=== PATIENT | male | born 1995 | race Caucasian/White ===

== ENCOUNTER → 2017-05-29 | Outpatient (CLI) | payer OTHER ==
--- NOTE | 2017-05-29 17:06 | XR ---
EXAMINATION TYPE: XR Hip Complete RT DATE OF EXAM: 05/29/2017 COMPARISON: NONE HISTORY: Pain right hip contusion thigh TECHNIQUE: 2 view right hip FINDINGS: No acute fractures are evident. The femoral head articulates with the acetabulum. Joint spa ana preserved. IMPRESSION: 1. No acute osseous abnormality right hip.
== END | disposition home or self-care (01) ==
LOC: RADXRMAIN 15:39
PROVIDERS: ATTEND Family Medicine
DX: S70.11XA Contusion of right thigh, initial encounter (principal)
CPT/HCPCS: 73502

== ENCOUNTER 2018-06-11 18:19 | Observation (INO) | payer OTHER ==
[2018-06-11] MEDS ORDERED: SODIUM CHLORIDE 0.9% 1,000 ML IV ONE (19:12)
[2018-06-11] MEDS ORDERED: AMPICILLIN-SULBACTAM 3 GM in SODIUM CHLORIDE 0.9% 100 ML IVPB STA (19:12)
[2018-06-11] MEDS ORDERED: KETOROLAC 30 MG/ML 1 ML VIAL IVP STA (19:12)
[2018-06-11] MEDS ORDERED: DIPH,PERTUS(ACELL)TETVAC-LF 0.5 ML VIAL IM ONE (19:12)
--- NOTE | 2018-06-11 19:13 | ED ---
Animal Bite HPI - General Chief Complaint: Animal Bite Stated Complaint: Cat bite Time Seen by Provider: 06/11/18 19:01 Source: patient, RN notes reviewed, old records reviewed Mode of arrival: ambulatory Limitations: no limitations - History of Present Illness Initial Comments: Patient is a 23-year-old male who presents emergency department today for e valuation for Bite to his left elbow. Patient reports that he was bit by his likely neighbors domestic cat. There is a collar for CAt the time. They believe the cat's domesticated is up-to-date on vaccines. Declined rabies shots. Patient reports he's had increased redness, swelling over the elbow and forearm. Was seen by his PCP today and sent in for evaluation. He has not been on any antibiotics. His tetanus is not up-to-date. - Related Data Home Medications Medication Instructions Recorded Confirmed Ibuprofen [Advil] 600 mg PO Q8HR 06/11/18 06/11/18 Lacosamide [Vimpat] 200 mg PO BID 06/11/18 06/11/18 Melatonin 10 mg PO HS 06/11/18 06/11/18 Pramipexole Di-HCl [Mirapex] 0.25 mg PO HS 06/11/18 06/11/18 clonazePAM [KlonoPIN] 1 mg PO TID 06/11/18 06/11/18 Allergies Allergy/AdvReac Type Severity Reaction Status Date / Time codeine AdvReac Rash/Hives Verified 06/11/18 19:28 Review of Systems ROS Statement: Those systems with pertinent positive or pertinent negative responses have been documented in the HPI. ROS Other: All systems not noted in ROS Statement are negative. Past Medical History Past Medical History: Seizure Disorder Additional Past Medical History / Comment(s): Seizure History of Any Multi-Drug Resistant Organisms: MRSA Date of last positivie culture/infection: approx 6 yrs ago MDRO Source:: foot Past Surgical History: Orthopedic Surgery Past Psychological History: ADD/ADHD Smoking Status: Current every day smoker Past Alcohol Use History: None Reported Past Drug Use History: None Reported General Exam - General Exam Comments Initial Comments: 23-year-old male. Alert and oriented. No significant distress. Limitations: no limitations Head exam: Present: atraumatic, normocephalic, normal inspection Eye exam: Present: normal appearance, PERRL, EOMI. Absent: scleral icterus, conjunctival injection, periorbital swelling ENT exam: Present: normal exam, mucous membranes moist Neck exam: Present: normal inspection. Absent: tenderness, meningismus, lymphadenopathy Respiratory exam: Present: normal lung sounds bilaterally. Absent: respiratory distress, wheezes, rales, rhonchi, stridor Cardiovascular Exam: Present: regular rate, normal rhythm, normal heart sounds. Absent: systolic murmur, diastolic murmur, rubs, gallop, clicks GI/Abdominal exam: Present: soft, normal bowel sounds. Absent: distended, tenderness, guarding, rebound, rigid Extremities exam: Present: normal inspection, full ROM, normal capillary refill, other (Patient has left forearm redness around the elbow and upper arm. Patient reports pain with flexion and extension of the elbow.). Absent: tenderness, pedal edema, joint swelling, calf tenderness Back exam: Present: normal inspection Neurological exam: Present: alert, oriented X3, CN II-XII intact Psychiatric exam: Present: normal affect, normal mood Skin exam: Present: warm, dry, intact, normal color. Absent: rash Course Vital Signs 06/11/18 18:49 Temperature 99.3 F Pulse Rate 97 Respiratory 20 Rate Blood Pressure 141/88 O2 Sat by Pulse 98 Oximetry Medical Decision Making - Medical Decision Making 23-year-old male present today for evaluation of A 9 days ago over his left elbow. His symptoms certainly cellulitis pain with range of motion noted. Patient has normal pulses and sensation distally. Low suspicion for compartment syndrome. Patient was sent in by PCP for IV antibiotic. Patient reports the cat's domestic had a collar on. Discussed risk and benefit of rabies prophyl axis. Patient declines. He is given updated T Deppe started on Unasyn. Patient will be admitted with consult store so. Discussed patient's care with Dr. Rao who discussed case with Dr. Ruiz. - Lab Data Result diagrams: 06/11/18 19:40 Lab Results 06/11/18 06/11/18 Range/Units 19:40 19:40 WBC 10.1 (3.8-10.6) k/uL RBC 4.36 (4.30-5.90) m/uL Hgb 12.9 L (13.0-17.5) gm/dL Hct 38.4 L (39.0-53.0) % MCV 88.0 (80.0-100.0) fL MCH 29.5 (25.0-35.0) pg MCHC 33.6 (31.0-37.0) g/dL RDW 12.5 (11.5-15.5) % Plt Count 259 (150-450) k/uL Neutrophils % 70 % Lymphocytes % 21 % Monocytes % 5 % Eosinophils % 1 % Basophils % 1 % Neutrophils # 7.1 (1.3-7.7) k/uL Lymphocytes # 2.2 (1.0-4.8) k/uL Monocytes # 0.5 (0-1.0) k/uL Eosinophils # 0.1 (0-0.7) k/uL Basophils # 0.1 (0-0.2) k/uL PT 10.2 (9.0-12.0) sec INR 0.9 (<1.2) APTT 28.8 (22.0-30.0) sec - Radiology Data Radiology results: report reviewed Elbow x-ray shows soft tissue swelling but no fractures noted. Disposition Clinical Impression: Cat bite, Left arm cellulitis Disposition: ADMITTED IP TO THIS [facility] Condition: Stable Instructions (If sedation given, give patient instructions): Animal Bite (ED) Is patient prescribed a controlled substance at d/c from ED?: No Referrals: Epi Dunham Jr, [Primary Care Provider] - 1-2 days Time of Disposition: 20:05
--- NOTE | 2018-06-11 19:47 | XR ---
EXAMINATION TYPE: XR elbow complete LT DATE OF EXAM: 06/11/2018 COMPARISON: NONE HISTORY: Redness and swelling TECHNIQUE: 3 views FINDINGS: I see no fracture nor dislocation. Elbow joint spaces are normal. There is no sign of elbow joint effusion. There is apparent soft tissue swelling around the upper forearm. IMPRESSION: Soft tissue swelling. No fracture seen.
[2018-06-11 19:55] LABS: Basophils # (A) 0.1 k/uL (0-0.2); Basophils % (A) 1 %; Eosinophils # (A) 0.1 k/uL (0-0.7); Eosinophils % (A) 1 %; HCT 38.4 % (39.0-53.0); HGB 12.9 gm/dL (13.0-17.5); Lymphocytes # (A) 2.2 k/uL (1.0-4.8); Lymphocytes % (A) 21 %; MCH 29.5 pg (25.0-35.0); MCHC 33.6 g/dL (31.0-37.0); Mean Platelet Volume 7.1; Monocytes # (A) 0.5 k/uL (0-1.0); Monocytes % (A) 5 %; Neutrophils # (A) 7.1 k/uL (1.3-7.7); Neutrophils % (A) 70 %; Platelet Count 259 k/uL (150-450); RBC 4.36 m/uL (4.30-5.90); RDW 12.5 % (11.5-15.5); WBC 10.1 k/uL (3.8-10.6)
[2018-06-11 20:00] LABS: INR 0.9 (<1.2); Partial Thromboplastin Time 28.8 sec (22.0-30.0); Prothrombin Time 10.2 sec (9.0-12.0)
[2018-06-11 20:03] LABS: ALT 50 U/L (21-72); AST 51 U/L (17-59); Albumin 4.5 g/dL (3.5-5.0); Alkaline Phosphatase 42 U/L (38-126); Anion Gap 9 mmol/L; Blood Urea Nitrogen 13 mg/dL (9-20); C Reactive Protein 60.8 mg/L (<10.0); Calcium 9.6 mg/dL (8.4-10.2); Carbon Dioxide 24 mmol/L (22-30); Chloride 107 mmol/L (98-107); Glucose 104 mg/dL (74-99); Potassium 3.9 mmol/L (3.5-5.1); Sodium 140 mmol/L (137-145); Total Bilirubin 0.6 mg/dL (0.2-1.3); Total Protein 7.5 g/dL (6.3-8.2)
[2018-06-11] MEDS ORDERED: ONDANSETRON 4 MG/2 ML VIAL IVP PRN (20:06)
[2018-06-11] MEDS ORDERED: ACETAMINOPHEN TAB 325 MG TAB PO PRN (20:06)
[2018-06-11] MEDS ORDERED: IBUPROFEN 400 MG TAB PO PRN (20:06)
[2018-06-11] MEDS ORDERED: KETOROLAC 30 MG/ML 1 ML VIAL IVP PRN (20:06)
[2018-06-11] MEDS ORDERED: NALOXONE 0.4 MG/ML 1 ML VIAL IV PRN (20:06)
[2018-06-11 22:41] VITALS: BMI 17.8
[2018-06-11] MEDS: SODIUM CHLORIDE 0.9% 1,000 ML IV SCH (23:01)
[2018-06-11] MEDS: clonazePAM 1 MG TAB PO SCH (23:51)
[2018-06-11] MEDS: PRAMIPEXOLE 0.25 MG TAB PO SCH (23:52)
[2018-06-11] MEDS: NICOTINE 21MG/24HR PATCH TRANSDERM SCH (23:52)
[2018-06-11] MEDS: LACOSAMIDE 50 MG TABLET PO SCH (23:52)
[2018-06-12] MEDS: MELATONIN 5 MG TABLET PO SCH ×2 (03:03→23:23)
--- NOTE | 2018-06-12 07:06 | P.CNOR ---
History of Present Illness - [facility] Consult date: 06/12/18 Consult reason: other (left elbow cellulitis) History of present illness: Mr. De Souza is a pleasant 23-year-old [id number] male who was admitted through the emergency department with a diagnosis of left elbow cellulitis. He sustained a cat bite to his left elbow 10 days ago. He did not seek treatment initially and has not been on antibiotics prior to admission. The pain and redness continued to worsen and he decided to have it evaluated. He states that, prior to admission, the redness extended nearly to his axilla and down towards his wrist. He says it is significantly improved since starting the antibiotics yesterday. He denies history of chronic infections or recent illness. He denies history of diabetes. PMH is positive for epilepsy but he has not had a seizure in 6 or 7 months. He smokes a half pack a day. He admits to marijuana use but denies IV or other illicit drug use. He is not currently employed. Past Medical History Past Medical History: Seizure Disorder Additional Past Medical History / Comment(s): Seizure History of Any Multi-Drug Resistant Organisms: MRSA Year Discovered:: approx 6 yrs ago MDRO Source:: left foot Past Surgical History: Orthopedic Surgery Past Anesthesia/Blood Transfusion Reactions: No Reported Reaction Past Psychological History: ADD/ADHD, Panic Disorder Smoking Status: Current every day smoker Past Alcohol Use History: None Reported Past Drug Use History: None Reported - Past Family History Father Family Medical History: Seizure Disorder Medications and Allergies Home Medications Medication Instructions Recorded Confirmed Type Ibuprofen [Advil] 600 mg PO Q8HR 06/11/18 06/11/18 History Lacosamide [Vimpat] 200 mg PO BID 06/11/18 06/11/18 History Melatonin 10 mg PO HS 06/11/18 06/11/18 History Pramipexole Di-HCl [Mirapex] 0.25 mg PO HS 06/11/18 06/11/18 History clonazePAM [KlonoPIN] 1 mg PO TID 06/11/18 06/11/18 History Allergies Allergy/AdvReac Type Severity Reaction Status Date / Time codeine AdvReac Rash/Hives Verified 06/11/18 19:28 Physical Examination There is a small puncture wound on the lateral aspect of the elbow, anterior to the lateral epicondyle and overlying the mobile wad. There is trace erythema immediately adjacent to the wound but no streaking proximally or distally. No drainage. There is mild induration and subcutaneous edema but no appreciable fluctuance or focal fluid collection. There is no subcutaneous crepitus. He is fairly guarded on exam and is focally tender to palpation in this area. He is able to actively range the elbow from 20-100 with minimal discomfort in the midrange. He has pain with active wrist motion, particularly at the extreme of flexion or with resisted wrist extension. Results Left elbow x-rays were reviewed from an orthopedic standpoint. These demonstrate no appreciable fractures, subluxations or dislocations. No subcutaneous air or retained foreign bodies. No osseous lucencies or erosions to suggest osteomyelitis. - Labs Labs: Abnormal Lab Results - Last 24 Hours (Table) 06/11/18 06/11/18 Range/Units 19:40 19:40 Hgb 12.9 L (13.0-17.5) gm/dL Hct 38.4 L (39.0-53.0) % Glucose 104 H (74-99) mg/dL C-Reactive Protein 60.8 H (<10.0) mg/L H & H 06/11/18 Range/Units 19:40 Hgb 12.9 L (13.0-17.5) gm/dL Hct 38.4 L (39.0-53.0) % Coagulation 06/11/18 Range/Units 19:40 INR 0.9 (<1.2) Result Diagrams: 06/11/18 19:40 06/11/18 19:40 Assessment and Plan Assessment: 1. Left elbow cellulitis status post cat-bite 2. Nicotine addiction Plan: I reviewed the clinical findings with the patient and his girlfriend in detail. His exam is consistent with a superficial cellulitis. I do not see evidence of a discrete abscess requiring surgical debridement. I recommended continuing IV antibiotics. We will consult the infectious disease team for further evaluation and treatment recommendations. I suggested starting some warm compresses to increase local circulation. He may use the hand and arm as tolerated. I encouraged him to perform frequent range of motion of his hand, wrist and elbow. We discussed the negative effects of cigarette smoking, particularly as it relates to infection risk and wound healing complications. I recommended that he quit. He expressed understanding and was in agreement with the initial treatment plan. We will continue to monitor his clinical progress. Yasir Martin D.O. [facility]
[2018-06-12] MEDS: LACOSAMIDE 50 MG TABLET PO SCH ×2 (08:21→21:12)
[2018-06-12] MEDS: clonazePAM 1 MG TAB PO SCH ×3 (08:22→21:12)
[2018-06-12] MEDS: PANTOPRAZOLE 40 MG/10 ML VIAL IV SCH (08:22)
[2018-06-12] MEDS: NICOTINE 21MG/24HR PATCH TRANSDERM SCH (08:27)
[2018-06-12] MEDS: Acetaminophen-Codeine 300-30mg TAB PO PRN ×4 (08:27→21:13)
[2018-06-12] MEDS: SODIUM CHLORIDE 0.9% 1,000 ML IV SCH ×2 (08:28→15:35)
--- NOTE | 2018-06-12 09:50 | P.CONS ---
History of Present Illness - Reason for Consult Consult date: 06/12/18 Left elbow cellulitis 10 days status post Bite - History of Present Illness This is a 23-year-old male gives history that he was bitten on the left elbow by a cat outdoors approximate 10 days ago. He has not been on any antibiotic treatment. He states the cat was probably neighbors because it had a collar on it but was not familiar to him. He has had increased redness and swelling to the elbow that extended up into the axillary area and towards his wrist. He is complaining of pain mostly in the upper lobe but also into the forearm. He denies having any fever or chills. He denies any change in his appetite but he usually has poor appetite. Patient came into [facility] emergency center for evaluation. He has been afebrile with a white count of 10.1, creatinine 0.66, CRP 60.8, albumin 4.5. X-ray of the left elbow showed soft tissue swelling with no fracture. Patient was given a Tdap, 1 L of IV fluids, one dose of Unasyn and admitted to the [facility] floor. Patient has been seen by orthopedics with no plan for surgical intervention. Patient states that he has had some decreased edema to the left elbow. He still continues to have pain to the elbow area. 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 Review of Systems All systems: negative Constitutional: Reports poor appetite, Denies anorexia, Denies chills, Denies fatigue, Denies fever, Denies lethargy, Denies malaise, Denies weakness Eyes: denies blurred vision, denies pain Ears, nose, mouth and throat: Denies dysphagia, Denies headache, Denies nasal congestion, Denies nasal discharge, Denies sore throat, Denies vertigo Cardiovascular: Denies chest pain, Denies decreased exercise tolerance, Denies dyspnea on exertion, Denies edema, Denies leg edema, Denies lightheadedness, Denies shortness of breath, Denies syncope Respiratory: Reports cough, Denies cough with sputum, Denies dyspnea, Denies excessive sputum, Denies hemoptysis, Denies home oxygen Gastrointestinal: Denies abdominal pain, Denies diarrhea, Denies loss of appetite, Denies melena, Denies nausea, Denies vomiting Genitourinary: Denies dysuria, Denies urinary retention Musculoskeletal: Denies frequent falls, Denies gait dysfunction, Denies muscle weakness, Denies myalgias Musculoskeletal: left: elbow pain, elbow stiffness, elbow swelling Integumentary: Reports wounds, Denies pruritus, Denies rash Neurological: Denies aphasia, Denies change in mentation, Denies change in speech, Denies gait dysfunction, Denies head injury, Denies headaches, Denies numbness, Denies seizures, Denies weakness Psychiatric: Denies anxiety, Denies depression Endocrine: Denies fatigue, Denies weight change Past Medical History Past Medical History: Seizure Disorder Additional Past Medical History / Comment(s): Seizure History of Any Multi-Drug Resistant Organisms: MRSA Year Discovered:: approx 6 yrs ago MDRO Source:: left foot Past Surgical History: Orthopedic Surgery Past Anesthesia/Blood Transfusion Reactions: No Reported Reaction Past Psychological History: ADD/ADHD, Panic Disorder Smoking Status: Current every day smoker Past Alcohol Use History: None Reported Additional Past Alcohol Use History / Comment(s): Patient is a smoker of half a pack per day for 6 years. He also uses marijuana. He denies any other illicit drug use. Patient does not work and he does not go to school. He lives with his fianc. Past Drug Use History: None Reported - Past Family History Father Family Medical History: Seizure Disorder Medications and Allergies Home Medications Medication Instructions Recorded Confirmed Type Ibuprofen [Advil] 600 mg PO Q8HR 06/11/18 06/11/18 History Lacosamide [Vimpat] 200 mg PO BID 06/11/18 06/11/18 History Melatonin 10 mg PO HS 06/11/18 06/11/18 History Pramipexole Di-HCl [Mirapex] 0.25 mg PO HS 06/11/18 06/11/18 History clonazePAM [KlonoPIN] 1 mg PO TID 06/11/18 06/11/18 History Allergies Allergy/AdvReac Type Severity Reaction Status Date / Time codeine AdvReac Rash/Hives Verified 06/11/18 19:28 Physical Exam Vitals: Vital Signs Temp Pulse Pulse Resp BP BP Pulse Ox 06/12/18 07:27 97.5 F L 62 110/70 98 06/12/18 01:02 97.5 F L 69 14 98/56 96 06/11/18 22:20 98.0 F 77 15 126/73 98 06/11/18 21:06 98.4 F 86 18 116/85 98 06/11/18 18:49 99.3 F 97 20 141/88 98 Intake and Output 06/11/18 06/12/18 06/12/18 22:59 06:59 14:59 Other: Weight 61.235 kg Gen: This is a thin 23-year-old male. He is resting on the edge of the bed and appears comfortable and in no acute distress. HEENT: Head is atraumatic, normocephalic. Pupils equal, round. Sclerae is anicteric. Conjunctiva pink. Mucous members of the mouth are moist. No thrush noted. Dentition is in good order. NECK: Supple. No JVD. No lymphadenopathy. No thyromegaly. LUNGS: Clear to auscultation. A few scattered expiratory wheezes. No rhonchi. No intercostal retractions. HEART: Regular rate and rhythm. No murmur. ABDOMEN: Soft. Bowel sounds are present. No masses. No tenderness. EXTREMITIES: No pedal edema. No calf tenderness. There are small puncture sites noted to the left elbow with edema. Very minimal erythema. No axillary lymph node enlargement palpated. Elbow was very tender to touch. Capillary refill is immediate. Increased pain with range of motion NEUROLOGICAL: Patient is awake, alert and oriented x3. Cranial nerves 2 through 12 are grossly intact. Results Results: Laboratory Results WBC 10.1 k/uL (3.8-10.6) 06/11/18 19:40 RBC 4.36 m/uL (4.30-5.90) 06/11/18 19:40 Hgb 12.9 gm/dL (13.0-17.5) L 06/11/18 19:40 Hct 38.4 % (39.0-53.0) L 06/11/18 19:40 MCV 88.0 fL (80.0-100.0) 06/11/18 19:40 MCH 29.5 pg (25.0-35.0) 06/11/18 19:40 MCHC 33.6 g/dL (31.0-37.0) 06/11/18 19:40 RDW 12.5 % (11.5-15.5) 06/11/18 19:40 Plt Count 259 k/uL (150-450) 06/11/18 19:40 Neutrophils % 70 % 06/11/18 19:40 Lymphocytes % 21 % 06/11/18 19:40 Monocytes % 5 % 06/11/18 19:40 Eosinophils % 1 % 06/11/18 19:40 Basophils % 1 % 06/11/18 19:40 Neutrophils # 7.1 k/uL (1.3-7.7) 06/11/18 19:40 Lymphocytes # 2.2 k/uL (1.0-4.8) 06/11/18 19:40 Monocytes # 0.5 k/uL (0-1.0) 06/11/18 19:40 Eosinophils # 0.1 k/uL (0-0.7) 06/11/18 19:40 Basophils # 0.1 k/uL (0-0.2) 06/11/18 19:40 PT 10.2 sec (9.0-12.0) 06/11/18 19:40 INR 0.9 (<1.2) 06/11/18 19:40 APTT 28.8 sec (22.0-30.0) 06/11/18 19:40 Sodium 140 mmol/L (137-145) 06/11/18 19:40 Potassium 3.9 mmol/L (3.5-5.1) 06/11/18 19:40 Chloride 107 mmol/L (98-107) 06/11/18 19:40 Carbon Dioxide 24 mmol/L (22-30) 06/11/18 19:40 Anion Gap 9 mmol/L 06/11/18 19:40 BUN 13 mg/dL (9-20) 06/11/18 19:40 Creatinine 0.66 mg/dL (0.66-1.25) 06/11/18 19:40 Est GFR (CKD-EPI)AfAm >90 (>60 ml/min/1.73 sqM) 06/11/18 19:40 Est GFR (CKD-EPI)NonAf >90 (>60 ml/min/1.73 sqM) 06/11/18 19:40 Glucose 104 mg/dL (74-99) H 06/11/18 19:40 Calcium 9.6 mg/dL (8.4-10.2) 06/11/18 19:40 Total Bilirubin 0.6 mg/dL (0.2-1.3) 06/11/18 19:40 AST 51 U/L (17-59) 06/11/18 19:40 ALT 50 U/L (21-72) 06/11/18 19:40 Alkaline Phosphatase 42 U/L (38-126) 06/11/18 19:40 C-Reactive Protein 60.8 mg/L (<10.0) H 06/11/18 19:40 Total Protein 7.5 g/dL (6.3-8.2) 06/11/18 19:40 Albumin 4.5 g/dL (3.5-5.0) 06/11/18 19:40 CBC & Chem 7: 06/11/18 19:40 06/11/18 19:40 Labs: Abnormal Lab Results - Last 24 Hours (Table) 06/11/18 06/11/18 Range/Units 19:40 19:40 Hgb 12.9 L (13.0-17.5) gm/dL Hct 38.4 L (39.0-53.0) % Glucose 104 H (74-99) mg/dL C-Reactive Protein 60.8 H (<10.0) mg/L Assessment and Plan Plan: This is a 23-year-old male presented to the hospital after Bite approximately 10-11 days ago. Patient's tetanus status was updated in the emergency center. He received 1 dose of Unasyn which will be continued. He is followed by orthop edics with no plan for intervention. Patient has been instructed to keep his elbow elevated and avoid keeping it in a contracted position. Blood cultures status received. Further recommendations as patient progresses. The above dictated assessment and findings were discussed with Dr. Sharma. The impression and plan of care have been directed as dictated. Rowena Jain nurse practitioner acting as scribe for Dr. Sharma.
[2018-06-12] MEDS: AMPICILLIN-SULBACTAM 3 GM in SODIUM CHLORIDE 0.9% 100 ML IVPB SCH ×2 (10:24→15:35)
[2018-06-12] MEDS: INDOMETHACIN 25 MG CAP PO SCH ×3 (11:53→21:12)
--- NOTE | 2018-06-12 15:42 | P.HPIM ---
History of Present Illness H&P Date: 06/12/18 This is a 23-year-old gentleman, presented to the ER status post catbite of left elbow area in a patient with history of epilepsy-last seizure 6-7 months ago, ongoing nicotine ,THC abuse. Patient states he believes it to belong to one of his neighbors. Attempted to look at its collar and was bitten. Incident occurred on 06/02/2018. Reports initially it appeared to have 6 bites with multiple scratches.His arm became edematous, reddened from his wrist up to just under his axilla level with significant tenderness. Had been unable to move his wrist. Redness and edema improved but tenderness persisted. Evaluated by PCP who directed him to the ER. Receiving Unasyn IV, gentle IV fluid hydration and tetanus vaccination. This morning mild edema around the elbow area, no erythema. Able to move wrist, positive fine motor movements of fingers. Denies numbness, tingling or decreased sensation on the affected extremity. Reports significant improvement in both pain and flexibility of extremity since IV antibiotics initiated .Afebrile, normal WBC. Evaluated by orthopedic surgery,xrays reviewed- no fracture, no dislocation, no effusion, positive soft tissue swelling of the upper forearm with no I&D recommended at this time. Denies chest pain, palpitations or increasing shortness of breath. Denies lightheadedness dizziness or focal deficits. Review of Systems ROS Statement: Those systems with pertinent positive or pertinent negative responses have been documented in the HPI. ROS Other: All systems not noted in ROS Statement are negative. Past Medical History Past Medical History: Seizure Disorder Additional Past Medical History / Comment(s): Seizure History of Any Multi-Drug Resistant Organisms: MRSA Date of last positivie culture/infection: approx 6 yrs ago MDRO Source:: left foot Past Surgical History: Orthopedic Surgery Past Anesthesia/Blood Transfusion Reactions: No Reported Reaction Past Psychological History: ADD/ADHD, Panic Disorder Smoking Status: Current every day smoker Past Alcohol Use History: None Reported Additional Past Alcohol Use History / Comment(s): Patient is a smoker of half a pack per day for 6 years. He also uses marijuana. He denies any other illicit drug use. Patient does not work and he does not go to school. He lives with his fianc. Past Drug Use History: None Reported - Past Family History Father Family Medical History: Seizure Disorder Medications and Allergies Home Medications Medication Instructions Recorded Confirmed Type Ibuprofen [Advil] 600 mg PO Q8HR 06/11/18 06/11/18 History Lacosamide [Vimpat] 200 mg PO BID 06/11/18 06/11/18 History Melatonin 10 mg PO HS 06/11/18 06/11/18 History Pramipexole Di-HCl [Mirapex] 0.25 mg PO HS 06/11/18 06/11/18 History clonazePAM [KlonoPIN] 1 mg PO TID 06/11/18 06/11/18 History Allergies Allergy/AdvReac Type Severity Reaction Status Date / Time codeine AdvReac Rash/Hives Verified 06/11/18 19:28 Physical Exam Vitals: Vital Signs Temp Pulse Pulse Resp BP BP Pulse Ox 06/12/18 08:10 62 14 06/12/18 07:27 97.5 F L 62 110/70 98 06/12/18 01:02 97.5 F L 69 14 98/56 96 06/11/18 22:20 98.0 F 77 15 126/73 98 06/11/18 21:06 98.4 F 86 18 116/85 98 06/11/18 18:49 99.3 F 97 20 141/88 98 Intake and Output 06/11/18 06/12/18 06/12/18 22:59 06:59 14:59 Other: Weight 61.235 kg PHYSICAL EXAM: VITAL SIGNS: As above GENERAL: Sitting up at side of bed, no acute distress HEENT: Conjunctivae normal. eyes normal. Oral mucosa moist NECK: No JVD. No thyroid enlargement. No LNs CARDIOVASCULAR: S1, S2 regular. No murmur RESPIRATION: Breath sounds diminished in the bases. No rhonchi or crackles. Occasional fine expiratory wheeze ABDOMEN: Soft, nontender . No guarding. no masses palpable.Bowel sounds heard. LEGS: No edema. no swelling PSYCHIATRY: Alert and oriented -3, mood and affect normal. NERVOUS SYSTEM: Cranial N 2-12 grossly normal. Moves all 4 limbs. No focal deficits. No sensory deficit. Skin: Left elbow puncture site with mild edema, no erythema,tender. Positive radial pulse. Positive fine motor skills-increased pain with movement. Results CBC & Chem 7: 06/11/18 19:40 06/11/18 19:40 Labs: Abnormal Lab Results - Last 24 Hours (Table) 06/11/18 06/11/18 Range/Units 19:40 19:40 Hgb 12.9 L (13.0-17.5) gm/dL Hct 38.4 L (39.0-53.0) % Glucose 104 H (74-99) mg/dL C-Reactive Protein 60.8 H (<10.0) mg/L Thrombosis Risk Factor Assmnt - Choose All That Apply Any of the Below Risk Factors Present?: No Other Risk Factors: No Thrombosis Risk Factor Assessment Level: Very Low Risk Assessment and Plan Assessment: Cat bite from 06/02/18, soft tissue swelling per x-ray.declined rabies vaccination. Tetanus updated. -Nicotine dependence -THC use -Epilepsy hx Plan: Continue on current medication regime ,monitoring and symptomatic treatment. Evaluated by a orthopedics if no intervention recommended at this time. Maintained on IV antibiotics as per infectious disease. Blood cultures pending. Smoking cessation addressed. All meds have been reviewed and resumed. Further recommendations to follow. The impression and plan of care has been dictated as directed. : I performed a history and examination of this patient, discussed the same with the dictator. I agree with the dictator's note ,documented as a scribe. Any additional findings or plans will be noted.
--- NOTE | 2018-06-12 23:02 | P.CON ---
Consult Note - . Consult date: 06/12/18 Assessment/Plan:: This is a 23-year-old male gives history that he was bitten on the left elbow by a cat outdoors approximate 10 days ago. He has not been on any antibiotic treatment. He states the cat was probably neighbors because it had a collar on it but was not familiar to him. He has had increased redness and swelling to the elbow that extended up into the axillary area and towards his wrist. He is complaining of pain mostly in the upper lobe but also into the forearm. He denies having any fever or chills. He denies any change in his appetite but he usually has poor appetite. Patient came into [facility] emergency center for evaluation. He has been afebrile with a white count of 10.1, creatinine 0.66, CRP 60.8, albumin 4.5. X-ray of the left elbow showed soft tissue swelling with no fracture. Patient was given a Tdap, 1 L of IV fluids, one dose of Unasyn and admitted to the [facility] floor. Patient has been seen by orthopedics with no plan for surgical intervention. Patient states that he has had some decreased edema to the left elbow. He still continues to have pain to the elbow area. 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 Please see the consult note is dictated by nurse practitioner Mrs. Rowena Jain. 23-year-old male relates that the cat was on his porch and had a collar and appeared to be an indoor cat. He went to try to chicken picker the To determine if there was a number to be able to call its gamb cutter. As he reached for the cat became frightened and bit him along the medial aspect of the left arm at the biceps and brachial site. No tenderness later he developed significant swelling and erythema to the arm and presents to his primary care physician, Dr. Ruiz, he was directed for admission to hospital. With fluids and antibiotic therapy with Unasyn yesterday showing a marked improvement. His Tdap Has been updated. Patient is showing an excellent response to Unasyn is still having some discomfort in receiving pain medications for that. We'll ensure he continues received some Toradol for now. The offending animal apparently is a neighborhood cat but they do not know the gamb cutter. Cat rabies is very uncommon and patient does not desire prophylaxis. Expect rapid improvement of cellulitis in the next day or so, playful transition to oral Augmentin at discharge. I agree with the evaluation assessment and plan as dicatated by [employer] Mrs. Rowena Jain.
[2018-06-12] MEDS: PRAMIPEXOLE 0.25 MG TAB PO SCH (23:23)
--- NOTE | 2018-06-12 23:37 | P.PN ---
Subjective Progress Note Date: 06/12/18 The patient was seen and examined at the bedside. He reports substantial improvement in both his pain and range of motion. He has been trying to move both the wrist and elbow and feels they are doing better. Pain is well- controlled on oral medication. Objective - Vital Signs Vital signs: Vital Signs Temp 97.7 F 06/12/18 19:15 Pulse 58 L 06/12/18 19:15 Resp 14 06/12/18 19:15 BP 132/81 06/12/18 19:15 Pulse Ox 98 06/12/18 19:15 Intake & Output 06/12/18 06/12/18 06/13/18 06:59 18:59 06:59 Other: Voiding Method Toilet # Voids 3 - Exam The edema and induration around the puncture wound has substantially diminished. It is much less tender to palpation. He is able to actively range the elbow from 30-110 with only mild discomfort at the extremes. - Labs CBC & Chem 7: 06/11/18 19:40 06/11/18 19:40 Assessment and Plan Assessment: 1. Left elbow cellulitis status post cat-bite 2. Nicotine addiction Plan: The elbow shows excellent clinical improvement. I recommended continuing range of motion and activity as tolerated. Based on his progression today, I expect he will be able to discharge home tomorrow. I explained that he may have some mild discomfort in lingering symptoms for a couple weeks but these should gradually diminish. He does not need to schedule any formal follow-up appointment with orthopedics but was encouraged to contact our office if he experiences persisting pain or concerning symptoms.
[2018-06-13] MEDS: AMPICILLIN-SULBACTAM 3 GM in SODIUM CHLORIDE 0.9% 100 ML IVPB SCH ×3 (00:13→15:55)
[2018-06-13] MEDS: SODIUM CHLORIDE 0.9% 1,000 ML IV SCH ×2 (01:32→14:48)
[2018-06-13] MEDS: NICOTINE 21MG/24HR PATCH TRANSDERM SCH (08:58)
[2018-06-13] MEDS: LACOSAMIDE 50 MG TABLET PO SCH (08:58)
[2018-06-13] MEDS: PANTOPRAZOLE 40 MG/10 ML VIAL IV SCH (08:58)
[2018-06-13] MEDS: clonazePAM 1 MG TAB PO SCH ×2 (08:58→14:49)
[2018-06-13] MEDS: INDOMETHACIN 25 MG CAP PO SCH ×2 (08:59→14:50)
[2018-06-13 09:01] VITALS: BP 95/58; PULSE 65; RESP 16; TEMP 97.7
[2018-06-13] MEDS: Acetaminophen-Codeine 300-30mg TAB PO PRN ×2 (09:13→14:49)
--- NOTE | 2018-06-13 09:48 | P.PN ---
Subjective Progress Note Date: 06/13/18 Principal diagnosis: Cat Bite with subsequent cellulitis left elbow. Mr. De Souza is a pleasant 23-year-old [id number] male who was admitted through the emergency department with a diagnosis of left elbow cellulitis. He sustained a cat bite to his left elbow 10 days ago. He did not seek treatment initially and has not been on antibiotics prior to admission. The pain and redness continued to worsen and he decided to have it evaluated. He states that, prior to admission, the redness extended nearly to his axilla and down towards his wrist. He says it is significantly improved since starting the antibiotics yesterday. He denies history of chronic infections or recent illness. He denies history of diabetes. PMH is positive for epilepsy but he has not had a seizure in 6 or 7 months. He smokes a half pack a day. He admits to marijuana use but denies IV or other illicit drug use. He has been on IV antibiotics for 2 days and is improving significantly. His elbow motion is improving. He has no new complaints or concerns today. Vital signs are stable. Objective - Vital Signs Vital signs: Vital Signs Temp 97.7 F 06/13/18 07:00 Pulse 65 06/13/18 07:00 Resp 16 06/13/18 07:00 BP 95/58 06/13/18 07:00 Pulse Ox 100 06/13/18 07:00 Intake & Output 06/12/18 06/13/18 06/13/18 18:59 06:59 18:59 Intake Total 1200 Balance 1200 Intake: Intake, IV Titration 1200 Amount Ampicillin-Sulbactam 3 gm 100 In Sodium Chloride 0.9% 100 ml @ 200 mls/hr IVPB Q8HR SHANNAN Rx#:[id number] Sodium Chloride 0.9% 1, 1100 000 ml @ 100 mls/hr IV . Q10H SHANNAN Rx#:[id number] Other: Voiding Method Toilet # Voids 3 2 - Exam This is a pleasant 23-year-old male in no acute distress. He is alert and oriented 3. Exam the left elbow reveals no erythema and minimal swelling. His range of motion is improving. He has extension lacking about 20 of full exten nicole with flexion to 130. Full forearm rotation without difficulty or pain. Neurovascular status to the upper extremity is intact. - Labs CBC & Chem 7: 06/11/18 19:40 06/11/18 19:40 Labs: Microbiology - Last 24 Hours (Table) 06/12/18 02:56 Blood Culture - Preliminary Blood No Growth after 24 hours Assessment and Plan (1) Cat bite Current Visit: Yes Status: Acute Code(s): W55.01XA - BITTEN BY CAT, INITIAL ENCOUNTER SNOMED Code(s): 294306622 (2) Left arm cellulitis Current Visit: Yes Status: Acute Code(s): L03.114 - CELLULITIS OF LEFT UPPER LIMB SNOMED Code(s): 636567656 Plan: The clinical findings are discussed the patient. He may be discharged from an orthopedic standpoint. He may follow up with his primary care physician. Please call our office during problems or questions regarding his progress.
--- NOTE | 2018-06-13 11:36 | P.PN ---
Progress Note - Text Patient was seen and examined today 06/13/2018. He is doing well. Awaiting infectious disease to clear him leia on Lasix for IV antibiotics before proceeding with a discharge summary. Expect discharge his afternoon after supper.
--- NOTE | 2018-06-13 17:16 | P.PN ---
Subjective Progress Note Date: 06/13/18 This is a 23-year-old male gives history that he was bitten on the left elbow by a cat outdoors approximate 10 days ago. He has not been on any antibiotic treatment. He states the cat was probably neighbors because it had a collar on it but was not familiar to him. He has had increased redness and swelling to the elbow that extended up into the axillary area and towards his wrist. He is complaining of pain mostly in the upper lobe but also into the forearm. He denies having any fever or chills. He denies any change in his appetite but he usually has poor appetite. Patient came into [facility] emergency center for evaluation. He has been afebrile with a white count of 10.1, creatinine 0.66, CRP 60.8, albumin 4.5. X-ray of the left elbow showed soft tissue swelling with no fracture. Patient was given a Tdap, 1 L of IV fluids, one dose of Unasyn and [facility] Patient has been seen by orthopedics with no plan for surgical intervention. Patient states that he has had some decreased edema to the left elbow. He still continues to have pain to the elbow area. 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 06/13/2018 patient is now markedly improved from yesterday. With elevation antibiotic therapy and anti-inflammatories he is almost back to his baseline status. Objective - Vital Signs Vital signs: Vital Signs Temp 97.7 F 06/13/18 07:00 Pulse 65 06/13/18 07:00 Resp 16 06/13/18 07:00 BP 95/58 06/13/18 07:00 Pulse Ox 100 06/13/18 07:00 Intake & Output 06/12/18 06/13/18 06/13/18 18:59 06:59 18:59 Intake Total 1200 Balance 1200 Intake: Intake, IV Titration 1200 Amount Ampicillin-Sulbactam 3 gm 100 In Sodium Chloride 0.9% 100 ml @ 200 mls/hr IVPB Q8HR SHANNAN Rx#:[id number] Sodium Chloride 0.9% 1, 1100 000 ml @ 100 mls/hr IV . Q10H SHANNAN Rx#:[id number] Other: Voiding Method Toilet # Voids 3 2 3 - Exam Gen: This is a thin 23-year-old male. He is resting on the edge of the bed and appears comfortable and in no acute distress. HEENT: Head is atraumatic, normocephalic. Pupils equal, round. Sclerae is anicteric. Conjunctiva pink. Mucous members of the mouth are moist. No thrush noted. Dentition is in good order. NECK: Supple. No JVD. No lymphadenopathy. No thyromegaly. LUNGS: Clear to auscultation. A few scattered expiratory wheezes. No rhonchi. No intercostal retractions. HEART: Regular rate and rhythm. No murmur. ABDOMEN: Soft. Bowel sounds are present. No masses. No tenderness. EXTREMITIES: No pedal edema. No calf tenderness. There are small puncture sites noted to the left elbow with edema. erythema has resolved No axillary lymph node enlargement palpated. severe tenderness is almost completely resolved. Capillary refill is immediate. Increased pain with range of motion NEUROLOGICAL: Patient is awake, alert and oriented x3. - Labs CBC & Chem 7: 06/11/18 19:40 06/11/18 19:40 Labs: Microbiology - Last 24 Hours (Table) 06/12/18 02:56 Blood Culture - Preliminary Blood No Growth after 24 hours Laboratory Results WBC 10.1 k/uL (3.8-10.6) 06/11/18 19:40 RBC 4.36 m/uL (4.30-5.90) 06/11/18 19:40 Hgb 12.9 gm/dL (13.0-17.5) L 06/11/18:40 Hct 38.4 % (39.0-53.0) L 06/11/18 19:40 MCV 88.0 fL (80.0-100.0) 06/11/18 19:40 MCH 29.5 pg (25.0-35.0) 06/11/18 19:40 MCHC 33.6 g/dL (31.0-37.0) 06/11/18 19:40 RDW 12.5 % (11.5-15.5) 06/11/18 19:40 Plt Count 259 k/uL (150-450) 06/11/18 19:40 Neutrophils % 70 % 06/11/18 19:40 Lymphocytes % 21 % 06/11/18 19:40 Monocytes % 5 % 06/11/18 19:40 Eosinophils % 1 % 06/11/18 19:40 Basophils % 1 % 06/11/18 19:40 Neutrophils # 7.1 k/uL (1.3-7.7) 06/11/18 19:40 Lymphocytes # 2.2 k/uL (1.0-4.8) 06/11/18 19:40 Monocytes # 0.5 k/uL (0-1.0) 06/11/18 19:40 Eosinophils # 0.1 k/uL (0-0.7) 06/11/18 19:40 Basophils # 0.1 k/uL (0-0.2) 06/11/18 19:40 PT 10.2 sec (9.0-12.0) 06/11/18 19:40 INR 0.9 (<1.2) 06/11/18 19:40 APTT 28.8 sec (22.0-30.0) 06/11/18 19:40 Sodium 140 mmol/L (137-145) 06/11/18 19:40 Potassium 3.9 mmol/L (3.5-5.1) 06/11/18 19:40 Chloride 107 mmol/L (98-107) 06/11/18 19:40 Carbon Dioxide 24 mmol/L (22-30) 06/11/18 19:40 Anion Gap 9 mmol/L 06/11/18 19:40 BUN 13 mg/dL (9-20) 06/11/18 19:40 Creatinine 0.66 mg/dL (0.66-1.25) 06/11/18 19:40 Est GFR (CKD-EPI)AfAm >90 (>60 ml/min/1.73 sqM) 06/11/18 19:40 Est GFR (CKD-EPI)NonAf >90 (>60 ml/min/1.73 sqM) 06/11/18 19:40 Glucose 104 mg/dL (74-99) H 06/11/18 19:40 Calcium 9.6 mg/dL (8.4-10.2) 06/11/18 19:40 Total Bilirubin 0.6 mg/dL (0.2-1.3) 06/11/18 19:40 AST 51 U/L (17-59) 06/11/18 19:40 ALT 50 U/L (21-72) 06/11/18 19:40 Alkaline Phosphatase 42 U/L (38-126) 06/11/18 19:40 C-Reactive Protein 60.8 mg/L (<10.0) H 06/11/18 19:40 Total Protein 7.5 g/dL (6.3-8.2) 06/11/18 19:40 Albumin 4.5 g/dL (3.5-5.0) 06/11/18 19:40 Microbiology 06/12/18 02:56 Blood Blood Culture - Preliminary No Growth after 24 hours Assessment and Plan (1) Cat bite Narrative/Plan: 23-year-old male relates that the cat was on his porch and had a collar and appeared to be an indoor cat. He went to try to picker and packer the To determine if there was a number to be able to call its dedicated owner operator. As he reached for the cat became frightened and bit him along the medial aspect of the left arm at the biceps and brachial site. No tenderness later he developed significant swelling and erythema to the arm and presents to his primary care physician, Dr. Ruiz, he was directed for admission to hospital. With fluids and antibiotic therapy with Unasyn yesterday showing a marked improvement. His Tdap Has been updated. Patient is showing an excellent response to Unasyn is still having some discomfort in receiving pain medications for that. We'll ensure he continues received some Toradol for now. The offending animal apparently is a neighborhood cat but they do not know the dedicated owner operator. Cat rabies is very uncommon and patient does not desire prophylaxis. Expect rapid improvement of cellulitis in the next day or so, playful transition to oral Augmentin at discharge. 06/13/2018 patient is now had marked improvement. He is ready for discharge to home. About therapy is sent to the pharmacy. He'll receive his last dose of Unasyn and follow up with his primary care physician. Current Visit: Yes Status: Acute Code(s): W55.01XA - BITTEN BY CAT, INITIAL ENCOUNTER SNOMED Code(s): 176679502 (2) Left arm cellulitis Current Visit: Yes Status: Acute Code(s): L03.114 - CELLULITIS OF LEFT UPPER LIMB SNOMED Code(s): 897662420
[2018-06-14] MEDS ORDERED: PANTOPRAZOLE 40 MG TABLET PO SCH (07:30)
== END 2018-06-13 19:02 | disposition home or self-care (01) ==
LOC: EC 18:19 → 4SSUR 20:21 → UNDOADMIN 20:21 → INTOOBSV 20:21 → 4SSUR 20:49 → UNDODISIN 06-13 19:02
PROVIDERS: ADMIT Family Medicine; ATTEND Family Medicine
PROC: 3E0234Z Introduction of Serum, Toxoid and Vaccine into Muscle, Percutaneous Approach (ICD-10-PCS; principal; 2018-06-11)
DX: L03.114 Cellulitis of left upper limb (principal); Z68.1 Body mass index [BMI] 19.9 or less, adult; G40.909 Epilepsy, unspecified, not intractable, without status epilepticus; F90.9 Attention-deficit hyperactivity disorder, unspecified type; F17.210 Nicotine dependence, cigarettes, uncomplicated; F12.10 Cannabis abuse, uncomplicated; F41.0 Panic disorder [episodic paroxysmal anxiety]; R63.0 Anorexia; W55.01XA Bitten by cat, initial encounter; Z23 Encounter for immunization; Z79.899 Other long term (current) drug therapy; Z71.6 Tobacco abuse counseling; Z86.14 Personal history of Methicillin resistant Staphylococcus aureus infection; Z88.5 Allergy status to narcotic agent; Z82.0 Family history of epilepsy and other diseases of the nervous system
CPT/HCPCS: 96376; 96361 ×2; 96366 ×2; 96375 ×2; 90471; 96365; 99284; 36415; 80053; 85025; 85610; 85730; 86140; 87040; 73080; 90715; G0378 ×3; S4990 ×3; J2405; J1885; J0295 ×3; C9113 ×2; 99285

== ENCOUNTER → 2019-04-01 | Outpatient (CLI) | payer OTHER ==
--- NOTE | 2019-04-01 15:18 | MR ---
EXAMINATION TYPE: MR hip LT wo con DATE OF EXAM: 04/01/2019 COMPARISON: NONE HISTORY: 23-year-old male Left hip pain TECHNIQUE: Multiplanar, multisequence images of the left hip were obtained without IV contrast. FINDINGS: No evidence for hip fracture or AVN. There is pronounced bone marrow edema centered on both sides of the left SI joint along with mild per iarticular soft tissue edema. No significant asymmetric SI joint effusion or well-defined fracture li ne. Prominent patchy red marrow is present compatible patient's young age. Mild bony excrescence along the superior femoral head neck junction on the left, refer to coned-down coronal series 601 image 7. No discrete labral tear given nonarthrographic technique. No significant hip joint effusion. The rectus femoris and hamstrings origins as well as the iliopsoas and gluteal insertions appear inta ct. Normal course, caliber, and signal intensity of the sciatic nerves. IMPRESSION: 1. Pronounced bone marrow edema about the left SI joint along with mild periarticular soft tissue andrew ma. Query sprain of the SI joint or stress injury versus large bone bruise. Consider short interval f ollow-up to assess for resolution of the abnormal signal changes. 2. Small superior femoral head neck junction osseous excrescence can predispose to CAM-type femoral a cetabular impingement syndrome. No labral injury identified.
== END ==
LOC: RADMRIMAIN 11:11
PROVIDERS: ATTEND Orthopaedic Surgery
DX: M79.89 Other specified soft tissue disorders (principal); R93.7 Abnormal findings on diagnostic imaging of other parts of musculoskeletal system; R60.0 Localized edema

== ENCOUNTER 2019-10-25 22:59 | Emergency (ER) | payer OTHER ==
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
[2019-10-25 23:51] LABS: Basophils # (A) 0.1 k/uL (0-0.2); Basophils % (A) 1 %; Eosinophils # (A) 0.1 k/uL (0-0.7); Eosinophils % (A) 1 %; HCT 46.6 % (39.0-53.0); HGB 15.5 gm/dL (13.0-17.5); Lymphocytes # (A) 2.5 k/uL (1.0-4.8); Lymphocytes % (A) 23 %; MCH 30.3 pg (25.0-35.0); MCHC 33.2 g/dL (31.0-37.0); Mean Platelet Volume 7.9; Monocytes # (A) 0.5 k/uL (0-1.0); Monocytes % (A) 5 %; Neutrophils # (A) 7.3 k/uL (1.3-7.7); Neutrophils % (A) 69 %; Platelet Count 252 k/uL (150-450); RBC 5.12 m/uL (4.30-5.90); RDW 12.3 % (11.5-15.5); WBC 10.6 k/uL (3.8-10.6)
[2019-10-26 00:01] LABS: Amphetamine Screen,Urine Not Detected (NotDetected); Barbiturate Screen,Urine Not Detected (NotDetected); Benzodiazepines Screen,Urine Not Detected (NotDetected); Cocaine Screen,Urine Not Detected (NotDetected); Methadone Screen, Urine Not Detected (NotDetected); Opiate Screen,Urine Not Detected (NotDetected); Oxycodone Screen, Urine Not Detected (NotDetected); Phencyclidine Screen,Urine Not Detected (NotDetected); Tricyclic Antidepressant,Urine Not Detected (NotDetected); Urn Cannabinoid Scrn Detected (NotDetected)
[2019-10-26] MEDS: clonazePAM 1 MG TAB PO SCH ×2 (00:01→12:14)
[2019-10-26] MEDS: LACOSAMIDE 50 MG TABLET PO SCH ×2 (00:01→12:14)
[2019-10-26 00:26] LABS: ALT 24 U/L (4-49); AST 40 U/L (17-59); Acetaminophen <10.0 ug/mL; African American GFR (CKD) >90 (>60 ml/min/1.73 sqM); Albumin 5.5 g/dL (3.5-5.0); Alkaline Phosphatase 67 U/L (38-126); Anion Gap 16 mmol/L; Blood Urea Nitrogen 13 mg/dL (9-20); Calcium 9.7 mg/dL (8.4-10.2); Carbon Dioxide 20 mmol/L (22-30); Chloride 108 mmol/L (98-107); Glucose 96 mg/dL (74-99); Non-African American GFR(CKD) >90 (>60 ml/min/1.73 sqM); Potassium 4.2 mmol/L (3.5-5.1); Salicylate <1.0 mg/dL; Sodium 144 mmol/L (137-145); Total Bilirubin 0.7 mg/dL (0.2-1.3); Total Protein 8.8 g/dL (6.3-8.2)
[2019-10-26] MEDS ORDERED: NICOTINE 21MG/24HR PATCH TRANSDERM STA (00:27)
[2019-10-26 00:34] LABS: Alcohol 181 mg/dL
[2019-10-26 05:36] VITALS: RESP 18
[2019-10-26 13:46] VITALS: BP 126/65; PULSE 77; TEMP 98.5
== END 2019-10-26 14:01 | disposition home or self-care (01) ==
LOC: EC 22:59
DX: F43.22 Adjustment disorder with anxiety (principal); G40.909 Epilepsy, unspecified, not intractable, without status epilepticus; F90.9 Attention-deficit hyperactivity disorder, unspecified type; Z79.899 Other long term (current) drug therapy; Z88.5 Allergy status to narcotic agent; Z86.14 Personal history of Methicillin resistant Staphylococcus aureus infection
CPT/HCPCS: 36415; 80053; 85025; 80306; 83520; 99285; G0480 ×2; S4990; 80320; 80329

== ENCOUNTER 2020-04-14 23:41 | Emergency (ER) | payer OTHER ==
[2020-04-15 00:03] VITALS: RESP 19; TEMP 98
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
--- NOTE | 2020-04-15 00:32 | CT ---
EXAMINATION TYPE: CT brain rachel wo con DATE OF EXAM: 04/15/2020 COMPARISON: 10/11/2013 CT brain HISTORY: Trauma. Headache. Neck pain. CT DLP: mGycm Automated exposure control for dose reduction was used. There is some high attenuation in the right sylvian fissure suggestive of some mild acute subarachnoi d hemorrhage. There is no midline shift. Ventricles have normal size. The calvarium is intact. Skull base is intact. There is normal aeration of the mastoid sinuses. There is mucosal thickening in the left maxillary sinus expanding into the nasopharynx and suggestive of a mucocele. Cervical vertebra have normal alignment. Posterior elements are intact. Facet joints are intact. Prev ertebral soft tissues are intact. I see no fracture of the cervical spine. IMPRESSION: Normal CT scan of the cervical spine. There is suggestion of some acute subarachnoid hemorrhage in the right sylvian fissure. Expansile mass in the left maxillary sinus suggestive of a mucocele. This is a change compared to old CT scan. Malignant tumor not excluded. This exam was discussed with ER physician at 12:30 AM.
[2020-04-15] MEDS ORDERED: ACETAMINOPHEN TAB 325 MG TAB PO STA (01:15)
[2020-04-15 01:19] VITALS: BP 104/65; PULSE 89
== END 2020-04-15 01:22 | disposition other institution (70) ==
LOC: EC 23:41
DX: S06.6X0A Traumatic subarachnoid hemorrhage without loss of consciousness, initial encounter (principal); S01.511A Laceration without foreign body of lip, initial encounter; F17.200 Nicotine dependence, unspecified, uncomplicated; F10.129 Alcohol abuse with intoxication, unspecified; G40.909 Epilepsy, unspecified, not intractable, without status epilepticus; Y04.0XXA Assault by unarmed brawl or fight, initial encounter
CPT/HCPCS: 70450; 72125; 99284

== ENCOUNTER 2020-04-21 13:03 | Emergency (ER) | payer OTHER ==
[2020-04-21 13:20] VITALS: RESP 16; TEMP 97
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
[2020-04-21 14:21] VITALS: BP 112/68; PULSE 82
== END 2020-04-21 14:05 | disposition home or self-care (01) ==
LOC: EC 13:03
DX: G40.909 Epilepsy, unspecified, not intractable, without status epilepticus (principal); F90.9 Attention-deficit hyperactivity disorder, unspecified type; F17.200 Nicotine dependence, unspecified, uncomplicated; Z88.5 Allergy status to narcotic agent
CPT/HCPCS: 99284

== ENCOUNTER 2021-04-15 12:43 | Emergency (ER) | payer OTHER ==
[2021-04-15 12:51] VITALS: RESP 18; TEMP 97.8
[2021-04-15] MEDS ORDERED: LORazepam 2 MG/ML INJ IV STA (13:04)
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
[2021-04-15 13:16] LABS: Basophils # (A) 0.1 k/uL (0-0.2); Basophils % (A) 1 %; Eosinophils # (A) 0.1 k/uL (0-0.7); Eosinophils % (A) 1 %; Lymphocytes % (A) 30 %; MCH 29.5 pg (25.0-35.0); MCHC 33.4 g/dL (31.0-37.0); MCV 88.2 fL (80.0-100.0); Mean Platelet Volume 7.8; Monocytes # (A) 0.5 k/uL (0-1.0); Monocytes % (A) 5 %; Neutrophils # (A) 5.9 k/uL (1.3-7.7); Neutrophils % (A) 61 %; Platelet Count 235 k/uL (150-450); RBC 4.76 m/uL (4.30-5.90); WBC 9.8 k/uL (3.8-10.6)
[2021-04-15 13:22] LABS: ALT 33 U/L (4-49); AST 29 U/L (17-59); African American GFR (CKD) >90 (>60 ml/min/1.73 sqM); Albumin 4.6 g/dL (3.5-5.0); Alcohol <10 mg/dL; Alkaline Phosphatase 68 U/L (38-126); Anion Gap 14 mmol/L; Blood Urea Nitrogen 12 mg/dL (9-20); Carbon Dioxide 21 mmol/L (22-30); Chloride 104 mmol/L (98-107); Glucose 108 mg/dL (74-99); Magnesium 2.3 mg/dL (1.6-2.3); Non-African American GFR(CKD) >90 (>60 ml/min/1.73 sqM); Potassium 3.9 mmol/L (3.5-5.1); Sodium 139 mmol/L (137-145); Total Bilirubin 0.9 mg/dL (0.2-1.3); Total Protein 7.6 g/dL (6.3-8.2)
--- NOTE | 2021-04-15 13:33 | CT ---
EXAMINATION TYPE: CT brain wo con DATE OF EXAM: 04/15/2021 COMPARISON: 04/15/2020 HISTORY: Seizure activity CT DLP: 1099.[address] of the brain was performed. The ventricles, basal cisterns and sulci overlying the cerebral convexities demonstrate a normal appe arance. There is no evidence for intracranial hemorrhage or sulcal effacement. No mass effects are seen. Osseous calvarium is intact. Opacification left maxillary sinus compatible with chronic sinusitis. If symptoms persist consider MRI as clinically warranted. IMPRESSION: 1. No acute intracranial process is seen at this time. Chronic sinusitis.
[2021-04-15 14:33] VITALS: BP 114/68; PULSE 76
== END 2021-04-15 14:33 | disposition home or self-care (01) ==
LOC: EC 12:43
DX: G40.909 Epilepsy, unspecified, not intractable, without status epilepticus (principal); F31.9 Bipolar disorder, unspecified; F41.9 Anxiety disorder, unspecified; F90.9 Attention-deficit hyperactivity disorder, unspecified type; F17.200 Nicotine dependence, unspecified, uncomplicated; Z79.899 Other long term (current) drug therapy
CPT/HCPCS: 36415; 93005; 80053; 83735; 85025; 80235; 70450; 99284; 96374; G0480; J2060; 80320